=== PATIENT | female | born 1930 | race Caucasian/White ===

== ENCOUNTER 2017-01-12 14:33 | Inpatient (IN) | payer MEDICARE, OTHER ==
[~2017-01-12] VITALS: Ht 162.6 cm; Wt 68.1 kg
[2017-01-12 15:25] LABS: BILIRUBIN NEGATIVE (NEGATIVE); BLOOD 2+ Ery/uL (NEGATIVE); CLARITY CLEAR (CLEAR); COLOR YELLOW (YELLOW); GLUCOSE (U) NORMAL (NORMAL); KETONE (U) NEGATIVE (NEGATIVE); LEUKOCYTES TRACE Leu/uL (NEGATIVE); NITRITE NEGATIVE (NEGATIVE); PROTEIN 2+ mg/dL (NEGATIVE); UROBILINOGEN 0.2 mg/dL (0.2-1.0); pH 5.5 (5.0-9.0)
[2017-01-12 15:28] LABS: BACTERIA 1+
[2017-01-12 15:29] LABS: BASOPHIL 0.1 % (0-2); EOSINOPHIL 0.1 % (0-7); HCT 33.7 % (37.0-47.0); HGB 11.6 g/dl (12.5-16.0); LYMPHOCYTE 3.7 % (15-48); MCHC 34.4 g/dL (32.0-36.0); MCV 95.7 fL (78.0-100.0); MPV 10.9 fL (6.0-9.5); NEUTROPHIL 88.1 % (41-80); PLT 354 K/uL (150-400); RBC 3.52 M/uL (4.20-5.40); RDW 13.6 % (11.5-14.0); WBC 23.6 K/uL (4.0-10.5)
[2017-01-12 15:46] LABS: ALBUMIN 3.7 g/dL (3.4-4.8); CREATININE 0.8 mg/dL (0.5-1.0); GLOBULIN (CALCULATION) 4.1 g/dL (2.2-4.2); INR 1.06 (0.9-1.2); LACTIC ACID 2.1 mmol/L (0.5-2.2); POTASSIUM 4.6 mmol/L (3.5-5.1); PROTHROMBIN TIME 13.4 SECONDS (11.7-14.0); TOTAL PROTEIN 7.8 g/dL (6.4-8.3)
[2017-01-12 15:47] LABS: PTT 38.2 SECONDS (23.2-31.4)
[2017-01-12 20:57] LABS: BILIRUBIN NEGATIVE (NEGATIVE); BLOOD 2+ Ery/uL (NEGATIVE); CLARITY CLEAR (CLEAR); COLOR YELLOW (YELLOW); GLUCOSE (U) NORMAL (NORMAL); KETONE (U) NEGATIVE (NEGATIVE); LEUKOCYTES NEGATIVE Leu/uL (NEGATIVE); NITRITE POSITIVE (NEGATIVE); PROTEIN 2+ mg/dL (NEGATIVE); UROBILINOGEN 0.2 mg/dL (0.2-1.0); pH 5.5 (5.0-9.0)
[2017-01-13 02:44] LABS: MCHC 33.3 g/dL (32.0-36.0); MCV 95.9 fL (78.0-100.0); MPV 10.7 fL (6.0-9.5); RBC 3.44 M/uL (4.20-5.40); RDW 13.8 % (11.5-14.0); WBC 23.5 K/uL (4.0-10.5)
[2017-01-13 03:04] LABS: BILIRUBIN - DIRECT 0.3 mg/dL (0.0-0.2); BILIRUBIN - TOTAL 0.9 mg/dL (0.1-1.0); CREATININE 0.7 mg/dL (0.5-1.0); GLOBULIN (CALCULATION) 3.6 g/dL (2.2-4.2); POTASSIUM 3.8 mmol/L (3.5-5.1); TOTAL PROTEIN 6.6 g/dL (6.4-8.3)
[2017-01-14 21:37] LABS: HGB 9.2 g/dl (12.5-16.0); MCH 31.6 pg (25.0-31.0); MCHC 31.7 g/dL (32.0-36.0); MCV 99.7 fL (78.0-100.0); MPV 11.1 fL (6.0-9.5); RBC 2.91 M/uL (4.20-5.40); RDW 14.2 % (11.5-14.0); WBC 10.5 K/uL (4.0-10.5)
[2017-01-14 21:54] LABS: ALBUMIN 2.4 g/dL (3.4-4.8); BILIRUBIN - TOTAL 0.5 mg/dL (0.1-1.0); CREATININE 1.1 mg/dL (0.5-1.0); GLOBULIN (CALCULATION) 3.5 g/dL (2.2-4.2); POTASSIUM 3.8 mmol/L (3.5-5.1); TOTAL PROTEIN 5.9 g/dL (6.4-8.3)
[2017-01-15 03:37] LABS: HCT 27.3 % (37.0-47.0); HGB 8.8 g/dl (12.5-16.0); MCH 32.1 pg (25.0-31.0); MCHC 32.2 g/dL (32.0-36.0); MCV 99.6 fL (78.0-100.0); MPV 10.6 fL (6.0-9.5); RBC 2.74 M/uL (4.20-5.40); WBC 10.5 K/uL (4.0-10.5)
[2017-01-15 03:57] LABS: ALBUMIN 2.3 g/dL (3.4-4.8); BILIRUBIN - TOTAL 0.5 mg/dL (0.1-1.0); GLOBULIN (CALCULATION) 2.6 g/dL (2.2-4.2); POTASSIUM 3.9 mmol/L (3.5-5.1); TOTAL PROTEIN 4.9 g/dL (6.4-8.3)
--- NOTE | 2017-01-15 09:00 | NUR ---
PT'S BP HYPERTENSIVE;181/71;HYDRALAZINE, 10MG, IV GIVEN. 0930 BP STABLE 126/60
[2017-01-15 14:57] LABS: BASOPHIL NO PRINT 0.3 % (0-2); EOSINOPHIL NO PRINT 4.7 % (0-7); HCT 28.9 % (37.0-47.0); LYMPHOCYTE NO PRINT 10.1 % (15-48); MCH NO PRINT 32.2 pg (25.0-31.0); MCHC NO PRINT 32.9 g/dL (32.0-36.0); MONOCYTE NO PRINT 6.5 % (0-12); MPV NO PRINT 10.8 fL (6.0-9.5); NEUTROPHIL NO PRINT 78.4 % (41-80); PLT NO PRINT 314 K/uL (150-400); RBC NO PRINT 2.95 M/uL (4.20-5.40); RDW NO PRINT 13.8 % (11.5-14.0); WBC NO PRINT 10.3 K/uL (4.0-10.5)
[2017-01-15 14:59] LABS: HGB 9.5 g/dL (12.5-16.0)
--- NOTE | 2017-01-15 17:30 | NUR ---
BP HYPERTENSIVE;HYDRALAZINE, 10MG, IV GIVEN 1800 BP STABLIZED;BP 118/55
[2017-01-15 22:49] LABS: BASOPHIL NO PRINT 0.3 % (0-2); EOSINOPHIL NO PRINT 3.5 % (0-7); HCT 30.2 % (37.0-47.0); HGB 9.8 g/dL (12.5-16.0); LYMPHOCYTE NO PRINT 7.4 % (15-48); MCH NO PRINT 31.6 pg (25.0-31.0); MCHC NO PRINT 32.5 g/dL (32.0-36.0); MCV NO PRINT 97.4 fL (78.0-100.0); MONOCYTE NO PRINT 7.2 % (0-12); MPV NO PRINT 10.5 fL (6.0-9.5); NEUTROPHIL NO PRINT 81.6 % (41-80); PLT NO PRINT 352 K/uL (150-400)
[2017-01-16 04:11] LABS: HCT 28.8 % (37.0-47.0); HGB 9.3 g/dl (12.5-16.0); MCH 31.4 pg (25.0-31.0); MCHC 32.3 g/dL (32.0-36.0); MCV 97.3 fL (78.0-100.0); MPV 10.9 fL (6.0-9.5); RBC 2.96 M/uL (4.20-5.40); WBC 9.6 K/uL (4.0-10.5)
[2017-01-16 04:40] LABS: ALBUMIN 2.5 g/dL (3.4-4.8); BILIRUBIN - TOTAL 0.6 mg/dL (0.1-1.0); GLOBULIN (CALCULATION) 2.6 g/dL (2.2-4.2); POTASSIUM 3.8 mmol/L (3.5-5.1); TOTAL PROTEIN 5.1 g/dL (6.4-8.3)
[2017-01-16 12:20] LABS: BASOPHIL NO PRINT 0.3 % (0-2); EOSINOPHIL NO PRINT 1.6 % (0-7); HCT 31.3 % (37.0-47.0); HGB 10.3 g/dL (12.5-16.0); LYMPHOCYTE NO PRINT 5.1 % (15-48); MCHC NO PRINT 32.9 g/dL (32.0-36.0); MCV NO PRINT 97.2 fL (78.0-100.0); MONOCYTE NO PRINT 5.8 % (0-12); MPV NO PRINT 10.5 fL (6.0-9.5); NEUTROPHIL NO PRINT 87.2 % (41-80); PLT NO PRINT 404 K/uL (150-400); RBC NO PRINT 3.22 M/uL (4.20-5.40); RDW NO PRINT 14.2 % (11.5-14.0); WBC NO PRINT 10.9 K/uL (4.0-10.5)
[2017-01-16 20:12] LABS: BASOPHIL NO PRINT 0.2 % (0-2); EOSINOPHIL NO PRINT 0.7 % (0-7); HCT 26.9 % (37.0-47.0); LYMPHOCYTE NO PRINT 7.1 % (15-48); MCH NO PRINT 32.5 pg (25.0-31.0); MCHC NO PRINT 33.5 g/dL (32.0-36.0); MCV NO PRINT 97.1 fL (78.0-100.0); MPV NO PRINT 10.2 fL (6.0-9.5); PLT NO PRINT 344 K/uL (150-400); RBC NO PRINT 2.77 M/uL (4.20-5.40); RDW NO PRINT 14.1 % (11.5-14.0); WBC NO PRINT 10.7 K/uL (4.0-10.5)
[2017-01-17 04:34] LABS: HCT 26.7 % (37.0-47.0); HGB 8.9 g/dl (12.5-16.0); MCH 32.2 pg (25.0-31.0); MCHC 33.3 g/dL (32.0-36.0); MCV 96.7 fL (78.0-100.0); MPV 10.7 fL (6.0-9.5); RBC 2.76 M/uL (4.20-5.40); RDW 13.9 % (11.5-14.0); WBC 10.9 K/uL (4.0-10.5)
[2017-01-17 04:53] LABS: ALBUMIN 2.7 g/dL (3.4-4.8); BILIRUBIN - TOTAL 0.6 mg/dL (0.1-1.0); CREATININE 1.1 mg/dL (0.5-1.0); GLOBULIN (CALCULATION) 2.5 g/dL (2.2-4.2); POTASSIUM 4.1 mmol/L (3.5-5.1); TOTAL PROTEIN 5.2 g/dL (6.4-8.3)
[2017-01-18 15:00] LABS: BASOPHIL 0.4 % (0-2); EOSINOPHIL 2.2 % (0-7); HCT 24.7 % (37.0-47.0); HGB 8.3 g/dl (12.5-16.0); LYMPHOCYTE 8.8 % (15-48); MCHC 33.6 g/dL (32.0-36.0); MCV 95.4 fL (78.0-100.0); MONOCYTE 7.5 % (0-12); NEUTROPHIL 81.1 % (41-80); PLT 258 K/uL (150-400); RBC 2.59 M/uL (4.20-5.40)
[2017-01-18 15:09] LABS: WBC 9.8 K/uL (4.0-10.5)
[2017-01-18 15:21] LABS: CREATININE 1.1 mg/dL (0.5-1.0); POTASSIUM 4.1 mmol/L (3.5-5.1)
[2017-01-18] MEDS ORDERED: LACTINEX1 EACH PO (18:27)
[2017-01-18] MEDS ORDERED: LEVAQUIN500 MG PO (18:27)
[2017-01-18] MEDS ORDERED: CYMBALTA 30MG C30 MG PO (18:28)
[2017-01-18] MEDS ORDERED: ZESTRIL40 MG PO (18:28)
[2017-01-18] MEDS ORDERED: PERCOCET 5/3251 TAB PO (18:28)
[2017-01-18] MEDS ORDERED: LIPITOR20 MG PO (18:29)
[2017-01-18] MEDS ORDERED: PLAVIX75 MG PO (18:29)
[2017-01-18] MEDS ORDERED: ACETAMINOPHEN325 MG PO (18:29)
[2017-01-18] MEDS ORDERED: BENADRYL25 MG PO (18:29)
== END 2017-01-18 19:20 | DRG 854 ==
LOC: FER 14:33 → FTCU 17:55 → FMS 01-16 18:00
PROVIDERS: Emergency Medicine; Internal Medicine; Surgery; ADMIT Internal Medicine Adolescent Medicine
PROC: 0DNW4ZZ Release Peritoneum, Percutaneous Endoscopic Approach (ICD-10-PCS; 2017-01-13)
PROC: 0FT44ZZ Resection of Gallbladder, Percutaneous Endoscopic Approach (ICD-10-PCS; principal; 2017-01-13 12:15)
DX: A41.9 Sepsis, unspecified organism (principal); E87.2 Acidosis; K80.00 Calculus of gallbladder with acute cholecystitis without obstruction; K80.10 Calculus of gallbladder with chronic cholecystitis without obstruction; E87.1 Hypo-osmolality and hyponatremia; I11.9 Hypertensive heart disease without heart failure; F03.90 Unspecified dementia, unspecified severity, without behavioral disturbance, psychotic disturbance, mood disturbance, and anxiety; I10 Essential (primary) hypertension; N39.0 Urinary tract infection, site not specified; J98.11 Atelectasis; I69.351 Hemiplegia and hemiparesis following cerebral infarction affecting right dominant side; E78.5 Hyperlipidemia, unspecified; Z95.0 Presence of cardiac pacemaker; M06.9 Rheumatoid arthritis, unspecified; B96.1 Klebsiella pneumoniae [K. pneumoniae] as the cause of diseases classified elsewhere; B96.89 Other specified bacterial agents as the cause of diseases classified elsewhere; Z79.01 Long term (current) use of anticoagulants; K66.0 Peritoneal adhesions (postprocedural) (postinfection); Z66 Do not resuscitate
CPT/HCPCS: 36415; 70450; 71010; 74022; 80048; 80053; 80076; 80202; 81001; 81003; 83605; 83880; 84484; 85014; 85018; 85025; 85610; 85730; 87040; 87070; 87075; 87076; 87077; 87088; 87186; 87205; 88304; 93005; 97110; 97116; 97162; 97166; 97530; 97530-GP; 97535; C9113; J1170; J2270; J2405; J2543; J2710; J3010; J3370; Q9962

== ENCOUNTER 2017-01-20 11:40 | Inpatient (IN) | payer MEDICARE, OTHER ==
[~2017-01-20] VITALS: Ht 162.6 cm; Wt 70.8 kg
[~2017-01-20 11:40] MED LIST: ACETAMINOPHEN325 MG PO; BENADRYL25 MG PO; CYMBALTA 30MG C30 MG PO; LACTINEX1 EACH PO; LEVAQUIN500 MG PO; LIPITOR20 MG PO; PERCOCET 5/3251 TAB PO; PLAVIX75 MG PO; ZESTRIL40 MG PO
[2017-01-20 12:12] LABS: BILIRUBIN NEGATIVE (NEGATIVE); BLOOD NEGATIVE Ery/uL (NEGATIVE); CLARITY CLEAR (CLEAR); COLOR YELLOW (YELLOW); GLUCOSE (U) NORMAL (NORMAL); KETONE (U) TRACE mg/dL (NEGATIVE); LEUKOCYTES NEGATIVE Leu/uL (NEGATIVE); NITRITE NEGATIVE (NEGATIVE); PROTEIN 2+ mg/dL (NEGATIVE); UROBILINOGEN 0.2 mg/dL (0.2-1.0); pH 5.5 (5.0-9.0)
[2017-01-20 12:22] LABS: BASOPHIL 0.4 % (0-2); EOSINOPHIL 2.1 % (0-7); HCT 28.7 % (37.0-47.0); HGB 9.6 g/dl (12.5-16.0); LYMPHOCYTE 9.1 % (15-48); MCH 32.1 pg (25.0-31.0); MCHC 33.4 g/dL (32.0-36.0); MONOCYTE 5.1 % (0-12); MPV 10.6 fL (6.0-9.5); NEUTROPHIL 83.3 % (41-80); PLT 383 K/uL (150-400); RBC 2.99 M/uL (4.20-5.40)
[2017-01-20 12:22] LABS: BACTERIA 1+; SQUAMOUS EPITHELIAL CELLS RARE; URINARY RBC RARE; URINARY WBC RARE
[2017-01-20 12:23] LABS: WBC 10.2 K/uL (4.0-10.5)
[2017-01-20 12:34] LABS: ALBUMIN 2.9 g/dL (3.4-4.8); BILIRUBIN - TOTAL 0.4 mg/dL (0.1-1.0); CREATININE 0.8 mg/dL (0.5-1.0); GLOBULIN (CALCULATION) 3.6 g/dL (2.2-4.2); LACTIC ACID 1.1 mmol/L (0.5-2.2); POTASSIUM 3.9 mmol/L (3.5-5.1); TOTAL PROTEIN 6.5 g/dL (6.4-8.3)
[2017-01-21 04:06] LABS: HGB 7.8 g/dl (12.5-16.0); MCH 31.5 pg (25.0-31.0); MCHC 32.5 g/dL (32.0-36.0); MCV 96.8 fL (78.0-100.0); RBC 2.48 M/uL (4.20-5.40); RDW 14.1 % (11.5-14.0); WBC 10.7 K/uL (4.0-10.5)
[2017-01-21 04:25] LABS: CREATININE 0.9 mg/dL (0.5-1.0); POTASSIUM 3.9 mmol/L (3.5-5.1)
[2017-01-22 03:50] LABS: HCT 27.9 % (37.0-47.0); HGB 9.3 g/dl (12.5-16.0); MCH 31.7 pg (25.0-31.0); MCHC 33.3 g/dL (32.0-36.0); MCV 95.2 fL (78.0-100.0); MPV 10.7 fL (6.0-9.5); RBC 2.93 M/uL (4.20-5.40); RDW 14.9 % (11.5-14.0); WBC 10.1 K/uL (4.0-10.5)
[2017-01-22 04:07] LABS: CREATININE 0.9 mg/dL (0.5-1.0)
[2017-01-23 03:49] LABS: HCT 28.9 % (37.0-47.0); HGB 9.5 g/dl (12.5-16.0); MCH 31.5 pg (25.0-31.0); MCHC 32.9 g/dL (32.0-36.0); MCV 95.7 fL (78.0-100.0); MPV 10.8 fL (6.0-9.5); RBC 3.02 M/uL (4.20-5.40); RDW 14.8 % (11.5-14.0); WBC 10.3 K/uL (4.0-10.5)
[2017-01-23 04:12] LABS: CREATININE 0.8 mg/dL (0.5-1.0)
[2017-01-24 05:14] LABS: HCT 31.3 % (37.0-47.0); HGB 10.4 g/dl (12.5-16.0); MCH 31.9 pg (25.0-31.0); MCHC 33.2 g/dL (32.0-36.0); MPV 10.8 fL (6.0-9.5); RBC 3.26 M/uL (4.20-5.40); RDW 14.9 % (11.5-14.0); WBC 9.6 K/uL (4.0-10.5)
[2017-01-24 05:43] LABS: CREATININE 0.7 mg/dL (0.5-1.0); POTASSIUM 3.8 mmol/L (3.5-5.1)
[2017-01-25 04:08] LABS: HCT 32.9 % (37.0-47.0); MCHC 33.4 g/dL (32.0-36.0); MCV 95.6 fL (78.0-100.0); MPV 10.4 fL (6.0-9.5); RBC 3.44 M/uL (4.20-5.40); WBC 8.8 K/uL (4.0-10.5)
[2017-01-25 04:26] LABS: CREATININE 0.7 mg/dL (0.5-1.0)
[2017-01-26 04:30] LABS: HCT 31.6 % (37.0-47.0); HGB 10.6 g/dl (12.5-16.0); MCH 32.5 pg (25.0-31.0); MCV 96.9 fL (78.0-100.0); RBC 3.26 M/uL (4.20-5.40); WBC 7.3 K/uL (4.0-10.5)
[2017-01-26 04:31] LABS: MCHC 33.5 g/dL (32.0-36.0); PLT 479 K/uL (150-400)
[2017-01-26 04:47] LABS: CREATININE 0.7 mg/dL (0.5-1.0); POTASSIUM 3.6 mmol/L (3.5-5.1)
[2017-01-26 13:09] LABS: ALBUMIN 2.8 g/dL (3.4-4.8); BILIRUBIN - DIRECT 0.2 mg/dL (0.0-0.2); BILIRUBIN - TOTAL 0.2 mg/dL (0.1-1.0); GLOBULIN (CALCULATION) 2.6 g/dL (2.2-4.2); TOTAL PROTEIN 5.4 g/dL (6.4-8.3)
[2017-01-27 08:08] LABS: HCT 29.9 % (37.0-47.0); HGB 9.9 g/dl (12.5-16.0); MCH 31.7 pg (25.0-31.0); MCHC 33.1 g/dL (32.0-36.0); MCV 95.8 fL (78.0-100.0); MPV 10.1 fL (6.0-9.5); RBC 3.12 M/uL (4.20-5.40); RDW 14.9 % (11.5-14.0)
[2017-01-27 08:41] LABS: CREATININE 0.7 mg/dL (0.5-1.0); POTASSIUM 3.7 mmol/L (3.5-5.1)
[2017-01-28 05:25] LABS: HCT 31.2 % (37.0-47.0); HGB 10.2 g/dl (12.5-16.0); MCH 31.9 pg (25.0-31.0); MCHC 32.7 g/dL (32.0-36.0); MCV 97.5 fL (78.0-100.0); RBC 3.2 M/uL (4.20-5.40); RDW 15.1 % (11.5-14.0); WBC 6.7 K/uL (4.0-10.5)
[2017-01-28 05:48] LABS: ALBUMIN 2.5 g/dL (3.4-4.8); BILIRUBIN - TOTAL 0.2 mg/dL (0.1-1.0); CREATININE 0.7 mg/dL (0.5-1.0); GLOBULIN (CALCULATION) 2.2 g/dL (2.2-4.2); POTASSIUM 3.6 mmol/L (3.5-5.1); TOTAL PROTEIN 4.7 g/dL (6.4-8.3)
== END 2017-01-28 20:45 | disposition hospice, home (50) | DRG 388 ==
LOC: FER 11:40 → FTCU 16:20
PROVIDERS: Internal Medicine; Internal Medicine Cardiovascular Disease; ADMIT Internal Medicine Adolescent Medicine
DX: K56.60 Unspecified intestinal obstruction (principal); J69.0 Pneumonitis due to inhalation of food and vomit; E87.2 Acidosis; R13.12 Dysphagia, oropharyngeal phase; I69.351 Hemiplegia and hemiparesis following cerebral infarction affecting right dominant side; N39.0 Urinary tract infection, site not specified; M06.9 Rheumatoid arthritis, unspecified; I10 Essential (primary) hypertension; F32.9 Major depressive disorder, single episode, unspecified; E78.5 Hyperlipidemia, unspecified; R53.1 Weakness; D64.9 Anemia, unspecified; Z66 Do not resuscitate; B96.1 Klebsiella pneumoniae [K. pneumoniae] as the cause of diseases classified elsewhere; I69.392 Facial weakness following cerebral infarction; Z79.899 Other long term (current) drug therapy
CPT/HCPCS: 36415; 36430; 71010; 71250; 74020; 74022; 80048; 80053; 80076; 81001; 82150; 82271; 82962; 83605; 83690; 83874; 85025; 86850; 86900; 86901; 86922; 87040; 92526; 93971; C9113; J1956; J2020; J2185; J2405; P9016; Q9967